=== PATIENT | male | born 1990 | race Caucasian/White ===

== ENCOUNTER 2021-04-06 14:16 | Emergency (ER) | payer BC ==
[2021-04-06] MEDS ORDERED: ACETAMINOPHEN TAB 500 MG TAB PO STA (15:50)
[2021-04-06] MEDS ORDERED: IBUPROFEN 600 MG TAB PO STA (15:50)
--- NOTE | 2021-04-06 15:52 | ED ---
URI HPI - General Chief Complaint: Upper Respiratory Infection Stated Complaint: COVID+, Wants antibodies Time Seen by Provider: 04/06/21 15:24 Source: patient, family, RN notes reviewed Mode of arrival: ambulatory Limitations: no limitations - History of Present Illness Initial Comments: This a 22-year-old male presents emergency from chief complaint of COVID-19. Patient has a positive [facility] patient has a result. Patient states that symptoms started last couple days his father recently tested positive. Patient is here for monoclonal antibodies. Patient was fevers chills bodyaches cough congestion no chest pain no nausea vomiting diarrhea constipation. - Related Data Allergies Allergy/AdvReac Type Severity Reaction Status Date / Time No Known Allergies Allergy Verified 04/06/21 15:13 Review of Systems ROS Statement: Those systems with pertinent positive or pertinent negative responses have been documented in the HPI. ROS Other: All systems not noted in ROS Statement are negative. Past Medical History History of Any Multi-Drug Resistant Organisms: None Reported Past Surgical History: No Surgical Hx Reported Smoking Status: Never smoker Past Alcohol Use History: None Reported Past Drug Use History: None Reported General Exam General appearance: alert, in no apparent distress Head exam: Present: atraumatic, normocephalic, normal inspection Eye exam: Present: normal appearance, PERRL, EOMI. Absent: scleral icterus, conjunctival injection, periorbital swelling ENT exam: Present: normal exam, normal oropharynx, mucous membranes moist Neck exam: Present: normal inspection, full ROM. Absent: tenderness, meningismus, lymphadenopathy Respiratory exam: Present: normal lung sounds bilaterally. Absent: respiratory distress, wheezes, rales, rhonchi, stridor Cardiovascular Exam: Present: normal rhythm, tachycardia, normal heart sounds. Absent: systolic murmur, diastolic murmur, rubs, gallop, clicks GI/Abdominal exam: Present: soft, normal bowel sounds. Absent: distended, tenderness, guarding, rebound, rigid Neurological exam: Present: alert, oriented X3 Course Vital Signs 04/06/21 15:11 Temperature 102.2 F H Pulse Rate 115 H Respiratory 19 Rate Blood Pressure 128/80 O2 Sat by Pulse 96 Oximetry Medical Decision Making - Medical Decision Making Patient received monoclonal antibodies, Tylenol Motrin will be discharged stable condition return parameters were discussed. Disposition Clinical Impression: COVID-19 Disposition: HOME SELF-CARE Condition: Stable Instructions (If sedation given, give patient instructions): Coronavirus Disease 2019 (COVID-19) Additional Instructions: Please return to the Emergency Department if symptoms worsen or any other concerns. Is patient prescribed a controlled substance at d/c from ED?: No Referrals: Bennett Hutchinson MD [Primary Care Provider] - 1-2 days Time of Disposition: 15:51
[2021-04-06] MEDS ORDERED: CASIRIVIMAB (REGN10933) (EUA) 600 MG, IMDEVIMAB (REGN10987) (EUA) 600 MG in SODIUM CHLO... IVPB ONE (16:30)
[2021-04-06] MEDS ORDERED: SODIUM CHLORIDE 0.9% 50 ML IVPB ONE (16:30)
[2021-04-06 18:39] VITALS: BP 147/83; PULSE 108; RESP 18; TEMP 98.5
== END 2021-04-06 18:39 | disposition home or self-care (01) ==
LOC: EC 14:16
DX: U07.1 COVID-19 (principal)
CPT/HCPCS: 99283; Q0244